=== PATIENT | female | born 1955 | race Caucasian/White ===

== ENCOUNTER → 2016-08-13 | Outpatient (CLI) | payer BC ==
[~2016-08-13] VITALS: Ht 156.2 cm; Wt 168.7 kg
[~2016-08-13] MED LIST: ASPI81CH3 CHEW; CHOL50008 PO; FENO145T2 PO; LACTCAP8 PO; LISI10TA3 PO; METF500T PO; MULT1TAB84 PO; OMEG5CAP PO; PROPOFOL 200 MG/20 ML AMP IV ONE; SYNT112T PO
[2016-08-13 10:59] VITALS: BP 135/66; PULSE 62; RESP 20; TEMP 98.5; O2SAT 93
--- NOTE | 2016-08-13 11:21 | EKG ---
Date Performed: 08/13/2016 Time Performed: 10:43:34 PTAGE: 61 years EKG: Sinus rhythm INCOMPLETE RIGHT BUNDLE BRANCH BLOCK BORDERLINE ECG PREVIOUS TRACING : 12/02/2001 09.20 DOCTOR: Jose C Rodriguez Interpretating Date/Time 08/13/2016 11:19:03
[2016-08-13 13:42] VITALS: TEMP 97.6
[2016-08-13 13:57] VITALS: BP 107/60; PULSE 59; RESP 20; O2SAT 96
--- NOTE | 2016-08-13 15:49 | MR ---
cc: MIGDALIA MONTGOMERY MD, DAVID L. MD DATE 08/13/16 PREOPERATIVE DIAGNOSIS Strong family history of colon cancer. POSTOPERATIVE DIAGNOSIS 1. 3 mm hyperplastic rectosigmoid polyps times three fulgurated. PROCEDURE Total colonoscopy with fulguration of polyps. SURGEON Dr. Ray Cano ANESTHESIA MAC. INDICATION This is a 61-year-old who has a strong family history of colon cancer, suggestive of HNPCC. The patient presents for follow up colonoscopy. PROCEDURE The Pentax pediatric colonoscope was introduced in the anus to the cecum with 2+ difficulty due to dilated redundant colon. The pediatric instrument was passed through the sigmoid colon with less difficulty than in the past. Left lower quadrant followed by right upper quadrant pressure allowed passage fully into the cecum. The valve was identified. The cecum seen completely. The scope was withdrawn. Bowel prep was excellent. The above-mentioned polyps were identified and treated. The patient tolerated the procedure well. PLAN Recommend colonoscopy in 3 years with a pediatric colonoscope. MD ZAID Harvey/MARIANA /1:43 PM /3:34 PM JUAN
== END ==
LOC: HEND 10:07
PROVIDERS: ATTEND Colon & Rectal Surgery
DX: Z12.11 Encounter for screening for malignant neoplasm of colon (principal); Z80.0 Family history of malignant neoplasm of digestive organs; D12.7 Benign neoplasm of rectosigmoid junction; I45.10 Unspecified right bundle-branch block
CPT/HCPCS: 93005